=== PATIENT | female | born 1970 | race Caucasian/White ===

== ENCOUNTER 2019-08-20 06:34 | Day surgery (SDC) | payer OTHER ==
[~2019-08-20 06:34] MED LIST: Lactated Ringers 1,000 ML IV SCH; Lidocaine 1%/Sod Bicarbonate in NS 8.4% 1 ML Syringe IDERM PRN; Sodium Chloride 0.9% 10 ML Syringe FLUSH PRN
--- NOTE | 2019-08-20 07:12 | PCM.PREANE ---
Preanesthetic Assessment - Procedure Proposed Procedure: colonoscopy - Anesthesia/Transfusion/Family Hx Anesthesia History: Prior Anesthesia Without Reaction Family History of Anesthesia Reaction: No Transfusion History: No Prior Transfusion(s) - Review of Systems General: No Symptoms Pulmonary: No Symptoms Cardiovascular: No Symptoms Gastrointestinal: No Symptoms Neurological: No Symptoms Other: Reports: None - Physical Assessment NPO Status Date: 08/20/19 NPO Status Time: 04:15 Vital Signs: Last Vital Signs Temp 97.4 F 08/20/19 06:45 Pulse 84 08/20/19 06:45 Resp 16 08/20/19 06:45 BP 131/80 08/20/19 06:45 Pulse Ox 95 08/20/19 06:45 Height: 5 ft 6 in Weight: 80.286 kg ASA Class: 2 Mental Status: Alert & Oriented x3 Airway Class: Mallampati = 2 Dentition: Reports: Normal Dentition Thyro-Mental Finger Breadths: 2 Mouth Opening Finger Breadths: 3 ROM/Head Extension: Full Lungs: Clear to Auscultation, Normal Respiratory Effort Cardiovascular: Regular Rate, Regular Rhythm - Allergies Allergies/Adverse Reactions: Allergies Allergy/AdvReac Type Severity Reaction Status Date / Time No Known Allergies Allergy Verified 08/20/19 07:01 - Blood Blood Available: No - Acknowledgements Anesthesia Type Planned: MAC Pt an Appropriate Candidate for the Planned Anesthesia: Yes Alternatives and Risks of Anesthesia Discussed w Pt/Guardian: Yes Pt/Guardian Understands and Agrees with Anesthesia Plan: Yes PreAnesthesia Questionnaire HEENT History: Reports: None Cardiovascular History: Reports: None Respiratory History: Reports: None Gastrointestinal History: Reports: None Genitourinary History: Reports: Other (See Below) Other Genitourinary History: bladder leak, incontinence, tubal, hysterectomy 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) Other OB/BYN History: dense breasts, irregular menses, menorrhagia, , hysterectomy Musculoskeletal History: Reports: None Neurological History: Reports: Migraines (resolved) Psychiatric History: Reports: None Endocrine/Metabolic History: Reports: None Hematologic History: Reports: None Immunologic History: Reports: None Oncologic (Cancer) History: Reports: None Dermatologic History: Reports: None - Past Surgical History Head Surgeries/Procedures: Reports: None HEENT Surgical History: Reports: Oral Surgery Cardiovascular Surgical History: Reports: None Respiratory Surgical History: Reports: None GI Surgical History: Reports: None Female Surgical History: Reports: Hysterectomy, Tubal Ligation Male Surgical History: Reports: None Endocrine Surgical History: Reports: None Neurological Surgical History: Reports: None Musculoskeletal Surgical History: Reports: None Oncologic Surgical History: Reports: None Dermatological Surgical History: Reports: None - SUBSTANCE USE Smoking Status *Q: Never Smoker Tobacco Use Within Last Twelve Months: No Second Hand Smoke Exposure: No Days Per Week of Alcohol Use: 1 Recreational Drug Use History: No - HOME MEDS Home Medications: Home Meds Cetirizine HCl [Zyrtec] 10 mg PO DAILY PRN 08/17/19 [History] Fluticasone Propionate [Flonase] 1 dose NASBOTH DAILY 08/17/19 [History] Phentermine HCl 15 mg PO DAILY 08/17/19 [History] hydroCHLOROthiazide [Hydrochlorothiazide] 25 mg PO DAILY 08/17/19 [History] - CURRENT (IN HOUSE) MEDS Current Meds: Current Medications Lactated Ringer's (Ringers, Lactated) 1,000 mls @ 125 mls/hr IV ASDIRECTED MARLEN Stop: 08/20/19 23:00 Last Admin: 08/20/19 07:05 Dose: 125 mls/hr Lidocaine/Sodium Bicarbonate (Buffered Lidocaine 1% In Ns 8.4%) 0.25 ml IDERM ONETIME PRN PRN Reason: Prior to IV Start Stop: 08/20/19 18:00 Last Admin: 08/20/19 07:06 Dose: 0.25 ml Sodium Chloride (Saline Flush) 10 ml FLUSH ASDIRECTED PRN PRN Reason: Keep Vein Open Stop: 08/20/19 18:00
[2019-08-20] MEDS ORDERED: fentaNYL 100 MCG/2 ML SDV ONE (07:19)
[2019-08-20] MEDS ORDERED: Propofol 200 MG/20 ML SDV ONE (07:19)
[2019-08-20] MEDS ORDERED: Lidocaine 1% 4 ML ONE (07:19)
[2019-08-20] MEDS ORDERED: Midazolam 1 MG/ML 2 ML SDV ONE (07:19)
--- NOTE | 2019-08-20 07:47 | PCM.HP.2 ---
H&P History of Present Illness - General Date of Service: 08/20/19 Admit Problem/Dx: due for colonoscopy screening Source of Information: Patient History Limitations: Reports: No Limitations - History of Present Illness Other HPI/Comments: see clinic note from [employer]- no significant health issues. Presents today as scheduled for colonoscopy. - Related Data Allergies/Adverse Reactions: Allergies Allergy/AdvReac Type Severity Reaction Status Date / Time No Known Allergies Allergy Verified 08/20/19 07:01 Home Medications: Home Meds Cetirizine HCl [Zyrtec] 10 mg PO DAILY PRN 08/17/19 [History] Fluticasone Propionate [Flonase] 1 dose NASBOTH DAILY 08/17/19 [History] Phentermine HCl 15 mg PO DAILY 08/17/19 [History] hydroCHLOROthiazide [Hydrochlorothiazide] 25 mg PO DAILY 08/17/19 [History] Past Medical History HEENT History: Reports: None Cardiovascular History: Reports: None Respiratory History: Reports: None Gastrointestinal History: Reports: None Genitourinary History: Reports: Other (See Below) Other Genitourinary History: bladder leak, incontinence, tubal, hysterectomy 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 (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) Other OB/BYN History: dense breasts, irregular menses, menorrhagia, , hysterectomy Musculoskeletal History: Reports: None Neurological History: Reports: Migraines (resolved) Psychiatric History: Reports: None Endocrine/Metabolic History: Reports: None Hematologic History: Reports: None Immunologic History: Reports: None Oncologic (Cancer) History: Reports: None Dermatologic History: Reports: None - Past Surgical History Head Surgeries/Procedures: Reports: None HEENT Surgical History: Reports: Oral Surgery Cardiovascular Surgical History: Reports: None Respiratory Surgical History: Reports: None GI Surgical History: Reports: None Female Surgical History: Reports: Hysterectomy, Tubal Ligation Male Surgical History: Reports: None Endocrine Surgical History: Reports: None Neurological Surgical History: Reports: None Musculoskeletal Surgical History: Reports: None Oncologic Surgical History: Reports: None Dermatological Surgical History: Reports: None Social & Family History - Tobacco Use Smoking Status *Q: Never Smoker Second Hand Smoke Exposure: No - Caffeine Use Caffeine Use: Reports: Coffee - Alcohol Use Days Per Week of Alcohol Use: 1 - Recreational Drug Use Recreational Drug Use: No Drug Use in Last 12 Months: No H&P Review of Systems - Review of Systems: Review Of Systems: See Below General: Reports: No Symptoms HEENT: Reports: No Symptoms Pulmonary: Reports: No Symptoms Exam - Exam Exam: See Below - Vital Signs Vital Signs: Last Vital Signs Temp 36.3 C 08/20/19 06:45 Pulse 84 08/20/19 06:45 Resp 16 08/20/19 06:45 BP 131/80 08/20/19 06:45 Pulse Ox 95 08/20/19 06:45 Weight: 80.286 kg - Exam General: Alert, Oriented GI/Abdominal Exam: Soft, Non-Tender Sepsis Event Note - Evaluation Sepsis Screening Result: No Definite Risk - Focused Exam Vital Signs: Vital Signs Temp Pulse Resp BP Pulse Ox 08/20/19 06:45 36.3 C 84 16 131/80 95 Date Exam was Performed: 08/20/19 Time Exam was Performed: 07:45 *Q Meaningful Use (ADM) - VTE Risk Assess *Q Each Risk Factor Represents 1 Point: None Total Score 1 Point Risk Factors: 0 Problem List Initiated/Reviewed/Updated: Yes Orders Last 24hrs: Active Orders 24 hr Category Date Time Status Communication Order [RC] ROUTINE Care 08/20/19 07:13 Active Peripheral IV Care [RC] . DIRECTED Care 08/20/19 00:01 Active Verify Patient Consent Obtain [RC] ASDIRECTED Care 08/20/19 00:01 Active Lactated Ringers [Ringers, Lactated] 1,000 ml Med 08/20/19 00:01 Active IV ASDIRECTED Lidocaine 1%/Sod Bicarbonate [Buffered Lidocaine 1% in Med 08/20/19 00:01 Active NS 8.4%] 0.25 ml IDERM ONETIME PRN Sodium Chloride 0.9% [Saline Flush] Med 08/20/19 00:01 Active 10 ml FLUSH ASDIRECTED PRN Medication Administration Instruction [OM.PC] Routine Oth 08/20/19 00:01 Ordered Peripheral IV Insertion Adult [OM.PC] Routine Oth 08/20/19 00:01 Ordered Medication Orders Lactated Ringer's (Ringers, Lactated) 1,000 mls @ 125 mls/hr IV ASDIRECTED MARLEN Stop: 08/20/19 23:00 Last Admin: 08/20/19 07:05 Dose: 125 mls/hr Lidocaine/Sodium Bicarbonate (Buffered Lidocaine 1% In Ns 8.4%) 0.25 ml IDERM ONETIME PRN PRN Reason: Prior to IV Start Stop: 08/20/19 18:00 Last Admin: 08/20/19 07:06 Dose: 0.25 ml Sodium Chloride (Saline Flush) 10 ml FLUSH ASDIRECTED PRN PRN Reason: Keep Vein Open Stop: 08/20/19 18:00 Assessment/Plan Comment:: screening colonoscopy today - Mortality Measure Prognosis:: Good
--- NOTE | 2019-08-20 08:24 | PCM.PREANE ---
Preanesthetic Assessment - Anesthesia/Transfusion/Family Hx Anesthesia History: Prior Anesthesia Without Reaction Family History of Anesthesia Reaction: No Transfusion History: No Prior Transfusion(s) - Review of Systems Cardiovascular: Other (chronic systolic CHF, aflutter s/p cardioverson 11/2018, tachycardia, EF 50-55%, heart cath, shows no CAD. EKG demonstrates SR with nonspecific t wave abnormalities) Other: Reports: None - Physical Assessment NPO Status Date: 08/20/19 NPO Status Time: 04:15 Vital Signs: Last Vital Signs Temp 36.3 C 08/20/19 06:45 Pulse 84 08/20/19 06:45 Resp 16 08/20/19 06:45 BP 131/80 08/20/19 06:45 Pulse Ox 95 08/20/19 06:45 Height: 1.68 m Weight: 80.286 kg ASA Class: 3 Mental Status: Alert & Oriented x3 - Allergies Allergies/Adverse Reactions: Allergies Allergy/AdvReac Type Severity Reaction Status Date / Time No Known Allergies Allergy Verified 08/20/19 07:01 - Blood Blood Available: No PreAnesthesia Questionnaire HEENT History: Reports: None Cardiovascular History: Reports: None Respiratory History: Reports: None Gastrointestinal History: Reports: None Genitourinary History: Reports: Other (See Below) Other Genitourinary History: bladder leak, incontinence, tubal, hysterectomy 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 (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) Other OB/BYN History: dense breasts, irregular menses, menorrhagia, , hysterectomy Musculoskeletal History: Reports: None Neurological History: Reports: Migraines (resolved) Psychiatric History: Reports: None Endocrine/Metabolic History: Reports: None Hematologic History: Reports: None Immunologic History: Reports: None Oncologic (Cancer) History: Reports: None Dermatologic History: Reports: None - Past Surgical History Head Surgeries/Procedures: Reports: None HEENT Surgical History: Reports: Oral Surgery Cardiovascular Surgical History: Reports: None Respiratory Surgical History: Reports: None GI Surgical History: Reports: None Female Surgical History: Reports: Hysterectomy, Tubal Ligation Male Surgical History: Reports: None Endocrine Surgical History: Reports: None Neurological Surgical History: Reports: None Musculoskeletal Surgical History: Reports: None Oncologic Surgical History: Reports: None Dermatological Surgical History: Reports: None - SUBSTANCE USE Smoking Status *Q: Never Smoker Tobacco Use Within Last Twelve Months: No Second Hand Smoke Exposure: No Days Per Week of Alcohol Use: 1 Recreational Drug Use History: No - HOME MEDS Home Medications: Home Meds Cetirizine HCl [Zyrtec] 10 mg PO DAILY PRN 08/17/19 [History] Fluticasone Propionate [Flonase] 1 dose NASBOTH DAILY 08/17/19 [History] Phentermine HCl 15 mg PO DAILY 08/17/19 [History] hydroCHLOROthiazide [Hydrochlorothiazide] 25 mg PO DAILY 08/17/19 [History] - CURRENT (IN HOUSE) MEDS Current Meds: Current Medications Lactated Ringer's (Ringers, Lactated) 1,000 mls @ 125 mls/hr IV ASDIRECTED MARLEN Stop: 08/20/19 23:00 Last Admin: 08/20/19 07:05 Dose: 125 mls/hr Lidocaine/Sodium Bicarbonate (Buffered Lidocaine 1% In Ns 8.4%) 0.25 ml IDERM ONETIME PRN PRN Reason: Prior to IV Start Stop: 08/20/19 18:00 Last Admin: 08/20/19 07:06 Dose: 0.25 ml Sodium Chloride (Saline Flush) 10 ml FLUSH ASDIRECTED PRN PRN Reason: Keep Vein Open Stop: 08/20/19 18:00 Discontinued Medications Fentanyl (Sublimaze) Confirm Administered Dose 100 mcg .ROUTE .STK-MED ONE Stop: 08/20/19 07:20 Lidocaine HCl (Xylocaine-Mpf 1%) Confirm Administered Dose 4 mls @ as directed .ROUTE .STK-MED ONE Stop: 08/20/19 07:20 Midazolam HCl (Versed 1 Mg/Ml) Confirm Administered Dose 2 mg .ROUTE .STK-MED ONE Stop: 08/20/19 07:20 Propofol (Diprivan 20 Ml) Confirm Administered Dose 200 mg .ROUTE .STK-MED ONE Stop: 08/20/19 07:20
--- NOTE | 2019-08-20 08:32 | PCM.PRNOTE ---
- Free Text/Narrative Note: Date: 08/20/2019 Procedure: screening colonoscopy Endoscopist: Yordan Bowens MD Findings: excellent prep. Terminal ileum intubated. Single pedunculated polyp in the ascending colon resected entirely in piecemeal fashion with based cauterized. Detailed report: The patient was taken to the endoscopy suite and timeout was performed. She was placed in left lateral decubitus position, and monitored anesthesia was initiated. Visual inspection of the anus showed no abnormality, digital rectal exam was unremarkable. The colonoscope was advanced all the way to the terminal ileum. The ileocecal valve was passed, and small bowel mucosa visualized. The prep was excellent. The scope was withdrawn slowly and mucosal surfaces inspected. A single roughly 1 cm pedunculated polyp was noted in the ascending colon. This was removed in piecemeal fashion entirely using the biopsy forceps. The base of the polyp was cauterized. Specimen was sent to pathology. The remainder of the colon appeared normal, without evidence of disease. The patient tolerated the procedure well. Yordan Bowens MD General Surgery
--- NOTE | 2019-08-20 08:33 | PCM48HPAN ---
Post Anesthesia Note - EVALUATION WITHIN 48HRS OF ANESTHETIC Vital Signs in Normal Range: Yes Patient Participated in Evaluation: Yes Respiratory Function Stable: Yes Airway Patent: Yes Cardiovascular Function Stable: Yes Hydration Status Stable: Yes Pain Control Satisfactory: Yes Nausea and Vomiting Control Satisfactory: Yes Mental Status Recovered: Yes Vital Signs: Last Vital Signs Temp 97.4 F 08/20/19 06:45 Pulse 84 08/20/19 06:45 Resp 16 08/20/19 06:45 BP 131/80 08/20/19 06:45 Pulse Ox 95 08/20/19 06:45 80 14 98.5 103/68 95%
[2019-08-20 09:00] VITALS: BP 103/74; PULSE 66
== END 2019-08-20 09:05 | disposition home or self-care (01) ==
LOC: JD.SDS 06:34
PROVIDERS: ATTEND Surgery
DX: Z12.11 Encounter for screening for malignant neoplasm of colon (principal); D12.2 Benign neoplasm of ascending colon; G43.909 Migraine, unspecified, not intractable, without status migrainosus
CPT/HCPCS: 45380; J2001; J2250; J2704; J3010; J7120